=== PATIENT | male | born 1940 | race Caucasian/White ===

== ENCOUNTER 2016-07-31 08:27 | Emergency (ER) | payer OTHER ==
[~2016-07-31] VITALS: Ht 180.3 cm; Wt 78.0 kg
[2016-07-31 08:32] VITALS: BP 158/84
[2016-07-31] MEDS ORDERED: HYDROcodone/APAP 5/325 TABLET ONE (08:53)
[2016-07-31] MEDS ORDERED: SIMV20TA3 PO (08:58)
[2016-07-31] MEDS ORDERED: HYDROcodone/APAP 5/325 TABLET PO ONE (09:00)
== END 2016-07-31 10:45 ==
LOC: ED 10:39
DX: S22.41XA Multiple fractures of ribs, right side, initial encounter for closed fracture (principal); E78.00 Pure hypercholesterolemia, unspecified; X58.XXXA Exposure to other specified factors, initial encounter; Y93.89 Activity, other specified; Y92.89 Other specified places as the place of occurrence of the external cause; Y99.9 Unspecified external cause status
CPT/HCPCS: 72072; 99284